=== PATIENT | female | born 1990 | race Caucasian/White ===

== ENCOUNTER 2023-02-06 09:26 | Inpatient (IN) | payer MEDICAID ==
[~2023-02-06] VITALS: Ht 162.6 cm; Wt 77.1 kg
[2023-02-06] MEDS ORDERED: MORPHINE SULFATE/PF 1MG/ML 10ML AMP ONE (10:48)
[2023-02-06] MEDS ORDERED: DIPHENHYDRAMINE 50MG/ML VIAL ONE (10:48)
[2023-02-06] MEDS ORDERED: EPHEDRINE SULFATE 50MG/ML VIAL ONE (10:48)
[2023-02-06] MEDS ORDERED: FENTANYL CITRATE/PF 50MCG/ML 2ML VIAL ONE (10:48)
[2023-02-06] MEDS ORDERED: ONDANSETRON HCL 4MG/2ML INJ ONE (10:48)
[2023-02-06] MEDS ORDERED: CEFAZOLIN SODIUM 1000MG/VIAL ONE (10:48)
[2023-02-06] MEDS ORDERED: OXYTOCIN 10 UNITS/ML 1ML ONE (10:48)
[2023-02-06] MEDS ORDERED: PHENYLEPHRINE HCL 10 MG/ML 1ML (IV VIAL) IV ONE (10:48)
[2023-02-06] MEDS ORDERED: LACTATED RINGERS 1,000 ML IV SCH (11:15)
[2023-02-06] MEDS ORDERED: CARBOPROST TROMETHAMINE 250 MCG/ML AMPUL IM PRN (11:15)
[2023-02-06] MEDS ORDERED: METHYLERGONOVINE MALEATE 0.2 MG/ML IM PRN (11:15)
[2023-02-06] MEDS ORDERED: OXYTOCIN 30 UNITS/500ML NS PMX 500 ML IV SCH (11:15)
[2023-02-06 12:28] LABS: BASOPHILS % 0.9 % (0.0-2.0); EOSINOPHILS % 2.1 % (0.0-5.0); HEMATOCRIT. 35.4 % (36.0-48.0); HEMOGLOBIN. 12.3 g/dL (12.0-16.0); LYMPHOCYTES % 19.2 % (20.0-50.0); MEAN CORPUSCULAR HEMOGLOBIN 32.4 pg (28.0-32.0); MEAN CORPUSCULAR VOLUME 93.1 fL (81.0-99.0); MEAN PLATELET VOLUME 8.8 fl (7.4-10.4); MONOCYTES % 5.8 % (2.0-8.0); PLATELET 272 x1000/uL (130-400)
[2023-02-06 12:31] LABS: CLARITY URINE CLEAR (CLEAR); COLOR URINE YELLOW (YELLOW); KETONES URINE NEGATIVE (NEGATIVE); LEUKOCYTE ESTERASE URINE 2+ (NEGATIVE); NITRITE URINE NEGATIVE (NEGATIVE); OCCULT BLOOD URINE NEGATIVE (NEGATIVE); PH URINE 6.5 (4.5-8.0); PROTEIN URINE NEGATIVE (NEGATIVE); SPECIFIC GRAVITY URINE 1.013 (1.005-1.030); UROBILINOGEN URINE 0.2 E.U./dL (0.2-1.0)
[2023-02-06 12:41] LABS: INR 0.9; PARTIAL THROMBOPLASTIN TIME 26.8 sec (23.4-31.0); PROTHROMBIN TIME 9.6 sec (9.6-11.0)
[2023-02-06 12:49] LABS: *AMPHETAMINES SCREEN URINE NEGATIVE (NEGATIVE); *BARBITURATES SCREEN URINE NEGATIVE (NEGATIVE); *BENZODIAZEPINES SCREEN URINE NEGATIVE (NEGATIVE); *COCAINE SCREEN URINE NEGATIVE (NEGATIVE); CANNABINOID URINE SCREEN NEGATIVE (NEGATIVE); METHADONE URINE SCREEN NEGATIVE (NEGATIVE); OPIATES URINE SCREEN NEGATIVE (NEGATIVE); PHENCYCLIDINE URINE SCREEN NEGATIVE (NEGATIVE)
[2023-02-06 13:22] LABS: HEPATITIS B SURFACE ANTIGEN NEGATIVE
[2023-02-06] MEDS ORDERED: SODIUM CHLORIDE 0.9% 10ML VIAL ONE (13:58)
[2023-02-06] MEDS ORDERED: KETOROLAC 60MG/2ML VIAL IM ONE (18:09)
[2023-02-06] MEDS ORDERED: NALOXONE HCL 0.4 MG/ML 1ML VIAL IV PRN (18:45)
[2023-02-06] MEDS ORDERED: BUTORPHANOL TARTRATE 2 MG/ML VIAL IV PRN (18:45)
[2023-02-06] MEDS ORDERED: DIPHENHYDRAMINE 50MG/ML VIAL IV PRN (18:45)
[2023-02-06 21:00] VITALS: BP 105/54
[2023-02-07] MEDS ORDERED: TETANUS, DIPHTHERIA, PERTUSSIS VAC/PF 0.5ML (>10YR OLD) IM ONE (01:00)
[2023-02-07] MEDS ORDERED: ONDANSETRON HCL 4MG/2ML INJ IV PRN (02:15)
[2023-02-07] MEDS ORDERED: IBUPROFEN 400MG TABLET PO PRN (02:15)
[2023-02-07] MEDS ORDERED: OXYTOCIN 30 UNITS/500ML NS PMX 500 ML IV SCH (02:15)
[2023-02-07] MEDS ORDERED: HEMORRHOIDAL SUPP PR PRN (02:15)
[2023-02-07] MEDS ORDERED: RHO(D) IMMUNE GLOBULIN 300 MCG/SYR IM PRN (02:15)
[2023-02-07] MEDS ORDERED: BISACODYL 10MG SUPP PR PRN (02:15)
[2023-02-07] MEDS ORDERED: LANOLIN OINT 7GM TUBE TOP PRN (02:15)
[2023-02-07] MEDS ORDERED: OXYCODONE HCL/ACETAMINOPHEN 5/325MG TABLET PO PRN (02:15)
[2023-02-07] MEDS ORDERED: DIPHENHYDRAMINE 25MG CAPSULE PO PRN (02:15)
[2023-02-07 04:00] VITALS: BP 97/60
[2023-02-07] MEDS: KETOROLAC 30MG/ML VIAL IV SCH ×2 (06:18→11:21)
[2023-02-07 08:15] VITALS: BP 95/56
[2023-02-07] MEDS: PRENATAL VIT/FE FUMARATE/FA TABLET PO SCH (09:10)
[2023-02-07] MEDS: FERROUS SULFATE 325MG TABLET PO SCH ×3 (09:11→17:48)
[2023-02-07] MEDS: MAGNESIUM/ALUMINUM HYDROXIDE/SIMETHICONE 30ML UDC PO SCH ×4 (09:12→20:09)
[2023-02-07 10:01] LABS: BASOPHILS % 0.5 % (0.0-2.0); HEMATOCRIT. 29.6 % (36.0-48.0); HEMOGLOBIN. 10.3 g/dL (12.0-16.0); LYMPHOCYTES % 16.3 % (20.0-50.0); MEAN CORPUSCULAR VOLUME 91.9 fL (81.0-99.0); MEAN PLATELET VOLUME 8.6 fl (7.4-10.4); MONOCYTES % 6.3 % (2.0-8.0); NEUTROPHILS % 75.9 % (40.0-76.0); PLATELET 206 x1000/uL (130-400); RED BLOOD CELL COUNT 3.22 mill/uL (4.2-5.4); RED CELL DISTRIBUTION WIDTH 13.2 % (11.6-14.6)
[2023-02-07 12:00] VITALS: BP 100/60
[2023-02-07] MEDS: SIMETHICONE 80MG TABLET CHEW PO SCH ×3 (13:02→20:09)
[2023-02-07 15:47] VITALS: BP 107/55
[2023-02-07 20:00] VITALS: BP 98/62
[2023-02-07] MEDS: DOCUSATE SODIUM 100MG CAPSULE PO SCH (20:09)
[2023-02-07] MEDS: IBUPROFEN 800MG TABLET PO PRN (20:09)
[2023-02-08] MEDS: IBUPROFEN 800MG TABLET PO PRN ×3 (03:56→17:46)
[2023-02-08 04:06] VITALS: BP 99/70
[2023-02-08 07:30] VITALS: BP 96/57
[2023-02-08] MEDS: MAGNESIUM/ALUMINUM HYDROXIDE/SIMETHICONE 30ML UDC PO SCH ×4 (08:00→22:39)
[2023-02-08] MEDS: SIMETHICONE 80MG TABLET CHEW PO SCH ×4 (08:00→22:40)
[2023-02-08] MEDS: FERROUS SULFATE 325MG TABLET PO SCH ×3 (08:01→17:46)
[2023-02-08] MEDS: PRENATAL VIT/FE FUMARATE/FA TABLET PO SCH (08:01)
[2023-02-08 15:30] VITALS: BP 108/55
[2023-02-08 20:00] VITALS: BP 105/62
[2023-02-08] MEDS: DOCUSATE SODIUM 100MG CAPSULE PO SCH (22:39)
[2023-02-09 04:00] VITALS: BP 104/67
[2023-02-09] MEDS ORDERED: IBUP-2030 PO (06:50)
[2023-02-09 07:30] VITALS: BP 106/58
[2023-02-09] MEDS: MAGNESIUM/ALUMINUM HYDROXIDE/SIMETHICONE 30ML UDC PO SCH ×2 (07:30→12:30)
[2023-02-09] MEDS: SIMETHICONE 80MG TABLET CHEW PO SCH ×2 (08:00→13:00)
[2023-02-09] MEDS: PRENATAL VIT/FE FUMARATE/FA TABLET PO SCH (09:00)
[2023-02-09] MEDS: FERROUS SULFATE 325MG TABLET PO SCH ×2 (09:09→12:30)
== END 2023-02-09 14:50 | disposition home or self-care (01) | DRG 540 ==
LOC: OBSVTOIN 09:26 → 8 EST LDRP 09:26 → 8EST 20:56
PROVIDERS: ADMIT Obstetrics & Gynecology; ATTEND Obstetrics & Gynecology
PROC: 10D00Z1 Extraction of Products of Conception, Low, Open Approach (ICD-10-PCS; principal; 2023-02-06)
DX: O34.211 Maternal care for low transverse scar from previous cesarean delivery (principal); D62 Acute posthemorrhagic anemia; O99.02 Anemia complicating childbirth; Z3A.39 39 weeks gestation of pregnancy; Z37.0 Single live birth; Z20.822 Contact with and (suspected) exposure to COVID-19
CPT/HCPCS: 36415; 80305; 81003; 85025; 86592; 86703; 86762; 86850; 86900; 87340; 87426; 90715; J0690; J1200; J1885; J2274; J2370; J2405; J3010; J3490; J7120; A4315; J2590